=== PATIENT | female | born 1945 | race Asian ===

== ENCOUNTER 2021-12-09 05:41 | Inpatient (IN) | payer BC ==
[~2021-12-09] VITALS: Ht 162.6 cm; Wt 50.1 kg
--- NOTE | 2021-12-09 05:41 | NUR ---
C/O GEN WEAKNESS SINCE 4PM YESTERDAY; NO APPETITE. PT A/OX4. TOLERATING R/A WELL WITH NO SOB. CONNECTED PT TO POX AND MONITOR
--- NOTE | 2021-12-09 06:20 | NUR ---
RAC #20G S/L; PATENT AND INTACT. BLOOD AND COVID ANTIGEN SWAB COLLECTED AND SENT TO LAB
--- NOTE | 2021-12-09 06:36 | NUR ---
SOLE LEVELER AT PT'S BEDSIDE
[2021-12-09 06:38] LABS: BASOPHILS % (AUTO) 0.4 % (0.0-2.0); EOSINOPHILS % (AUTO) 0.1 % (0.0-6.0); HEMATOCRIT 38 % (33-45); HEMOGLOBIN 12.9 g/dL (11.5-14.8); LYMPHOCYTES % (AUTO) 12.3 % (20.0-44.0); MEAN CORPUSCULAR HGB CONC 34 g/dl (31.0-36.0); MEAN CORPUSCULAR VOLUME 90 fL (82-100); MONOCYTES # (AUTO) 0.7 K/uL (0.1-1.30); MONOCYTES % (AUTO) 8.7 % (2.0-12.0); NEUTROPHILS # (AUTO) 6.5 K/uL (1.8-8.9); NEUTROPHILS % (AUTO) 78.5 % (43.0-81.0); PLATELET COUNT (AUTO) 189 K/uL (150-450); RED BLOOD CELL COUNT(AUTO) 4.24 MIL/uL (4.0-5.2); WHITE BLOOD COUNT (AUTO) 8.2 K/uL (4.3-11.0)
[2021-12-09 06:47] LABS: CALCIUM, SERUM 8.8 mg/dL (8.5-10.1); CARBON DIOXIDE 26 mmol/L (21-32); CHLORIDE 94 mmol/L (98-107); CREATININE 0.7 mg/dL (0.6-1.3); GLUCOSE 174 mg/dL (74-106); POTASSIUM 3.8 mmol/L (3.5-5.1); SODIUM SERUM 126 mmol/L (136-145); UREA NITROGEN, BLOOD 7 mg/dL (7-18)
[2021-12-09] MEDS ORDERED: ALBUTEROL FS 2.5 MG/3 ML VIAL.NEB CONTNEB ONE (07:00)
--- NOTE | 2021-12-09 07:05 | NUR ---
RT CALLED FOR TX
[2021-12-09] MEDS ORDERED: ALBUTEROL FS 2.5 MG/3 ML VIAL.NEB ONE (07:17)
[2021-12-09 07:24] LABS: ALBUMIN 3.1 g/dL (3.4-5.0); BILIRUBIN,DIRECT 0.1 mg/dL (0.0-0.2); BILIRUBIN,TOTAL 0.8 mg/dL (0.2-1.0); TOTAL PROTEIN, SERUM 7.9 g/dL (6.4-8.2)
[2021-12-09] MEDS ORDERED: IV NS 0.9% 1,000 ML IV ONE (07:30)
[2021-12-09] MEDS ORDERED: methylPREDNISolone SOD SUCC 125 MG/2ML VIAL ONE (08:00)
[2021-12-09] MEDS ORDERED: IPRATROPIUM NEB FS 0.5 MG/2.5 ML AMPUL.NEB NEB ONE (08:00)
[2021-12-09] MEDS ORDERED: methylPREDNISolone SOD SUCC 125 MG/2ML VIAL IV ONE (08:00)
--- NOTE | 2021-12-09 08:00 | NUR ---
called RT for Tx
[2021-12-09] MEDS ORDERED: IPRATROPIUM NEB FS 0.5 MG/2.5 ML AMPUL.NEB ONE (08:05)
--- NOTE | 2021-12-09 08:05 | NUR ---
RT at bedside for Tx.
[2021-12-09] MEDS ORDERED: METF-440 PO (08:22)
[2021-12-09] MEDS ORDERED: PREG-57 PO (08:22)
[2021-12-09] MEDS ORDERED: TRAM50TA2 PO (08:22)
[2021-12-09 08:29] LABS: BILIRUBIN,URINE NEGATIVE (NEGATIVE); COLOR,URINE YELLOW (YELLOW); LEUKOCYTE ESTERASE ,URINE NEGATIVE (NEGATIVE); NITRITE, URINE NEGATIVE (NEGATIVE); PROTEIN,URINE NEGATIVE (NEGATIVE); UGLUCOSE NEGATIVE (NEGATIVE); UROBILINOGEN,URINE 0.2 EU/dL (0.2)
[2021-12-09 08:35] LABS: WBC,URINE 0-2 /HPF (0-3)
[2021-12-09 08:36] LABS: BACTERIA,URINE None seen /HPF (None Seen); RBC,URINE 0-2 /HPF (0-2); SQUAMOUS EPITHELIAL CELL,UR 0-2 /HPF (None Seen)
--- NOTE | 2021-12-09 09:39 | NUR ---
[facility] CALLED COMPOSITION TEACHER PAGED, DR. SKINNER.
--- NOTE | 2021-12-09 12:02 | NUR ---
PT PROVIDED WITH MEAL TRAY
--- NOTE | 2021-12-09 12:34 | NUR ---
PT RESTING COMFORTABLY IN BED, VITAL SIGNS ARE STABLE.
--- NOTE | 2021-12-09 14:01 | NUR ---
PT ABLE TO AMBULATE IN BED WIHTOUT ASSISTANCE TO THE RESTROOM
[2021-12-09] MEDS ORDERED: ONDANSETRON HCL/PF 4 MG/2 ML VIAL IVP PRN (15:30)
[2021-12-09] MEDS ORDERED: MAG HYDROX/AL HYDROX/SIMETH 30 ML UDC PO PRN (15:30)
--- NOTE | 2021-12-09 16:01 | NUR ---
PT PROVIDED WITH FOOD TRAY
[2021-12-09] MEDS ORDERED: LEVOFLOXACIN 500 MG /D5W 100ML 100 ML IV ONE (16:16)
[2021-12-09] MEDS ORDERED: ENOXAPARIN SODIUM 40 MG/0.4 ML DISP.SYRIN SQ ONE (16:17)
[2021-12-09] MEDS: ENOXAPARIN SODIUM 40 MG/0.4 ML DISP.SYRIN SQ SCH (16:20)
[2021-12-09] MEDS: LEVOFLOXACIN 500 MG /D5W 100ML 500 MG in PREMIX 1 EA IV SCH (16:22)
[2021-12-09] MEDS: IV NS 0.9% 1,000 ML IV PRN (16:22)
[2021-12-09] MEDS ORDERED: Z GUARD REMEDY 4 OZ OINT TP PRN (17:00)
--- NOTE | 2021-12-09 18:52 | NUR ---
GOT BED 328-1 AFTER CHANGE OF SHIFT.
--- NOTE | 2021-12-09 19:53 | NUR ---
REPORT GIVEN TO FLAVIA RUANO FOR ELIZABETH
[2021-12-09 20:10] VITALS: BP 112/73
--- NOTE | 2021-12-09 20:17 | NUR ---
PATIENT TRANSFERRED UNDER ACLS.
[2021-12-09 20:20] VITALS: BP 112/73
[2021-12-09] MEDS: ZOLPIDEM TARTRATE 5 MG TABLET PO PRN (21:07)
[2021-12-09] MEDS: ACETAMINOPHEN 325 MG TABLET PO PRN (21:07)
[2021-12-09] MEDS: methylPREDNISolone SOD SUCC 125 MG/2ML VIAL IV SCH (21:07)
[2021-12-09] MEDS ORDERED: MAGNESIUM HYDROXIDE 30 ML UDC PO PRN (22:00)
--- NOTE | 2021-12-09 22:47 | NUR ---
RN ADMITTING NOTES Patient is A&Ox4. Initial VS B/P 112/73, HR 89, RR 20, temp 97.7, O2 sat 100% on 2L NC. is ambulatory with 1 person assist d/t weakness. Reports feeling weak, cold, productive cough with yellow phlegm, sinus congestion/nasal drip. Pupils equal and reactive to light extremities move evenly, heart rate and rhythm regular, wheezes heard throughout upon auscultation of lungs, bowel sounds hypoactive patient reported not eating anything today, abdomen is soft, non-tender, non-distended, no edema, skin intact. Tele monitor applied promptly -NSR. RAC #18G intact and patent -NS running at 75ml/hr. Oriented patient to unit protocols, room, bed controls, call light. Safety measures in place. Bed alarm on. Will continue to monitor.
[2021-12-10] VITALS (8 sets, daily range): BP systolic 118–156; BP diastolic 60–77
--- NOTE | 2021-12-10 01:33 | NUR ---
Patient says okay to give daughter updates Shara Gutiérrez [phone]
[2021-12-10] MEDS: methylPREDNISolone SOD SUCC 125 MG/2ML VIAL IV SCH ×3 (04:33→21:36)
[2021-12-10] MEDS: IPRATROPIUM NEB FS 0.5 MG/2.5 ML AMPUL.NEB NEB PRN ×2 (04:38→12:10)
[2021-12-10] MEDS: IV NS 0.9% 1,000 ML IV PRN (04:38)
[2021-12-10] MEDS: ALBUTEROL FS 2.5 MG/0.5 ML VIAL.NEB NEB PRN ×2 (04:38→12:10)
--- NOTE | 2021-12-10 04:43 | NUR ---
Patient is wheezing episode of SOB. called RT for PRN breathing treatment.
--- NOTE | 2021-12-10 06:13 | NUR ---
RN CLOSING NOTES Patient is currently awake in bed A&Ox4. No SOB at this time. Had 1 SOB episode overnight that was relieved with PRN breathing treatment. Able to ambulate to bathroom with assist at beginning of the night but later says she feels too weak and gets SOB upon exertion easily so pt. refused orthostatic vitals this AM. Will endorse if she is feeling better later. on tele monitor- SR overnight 85-95 mostly but when coughing can go up to 110. RAC #18G intact and patent running NS at 75ml/hr.
[2021-12-10 06:48] LABS: BASOPHILS % (AUTO) 0.1 % (0.0-2.0); HEMATOCRIT 38 % (33-45); HEMOGLOBIN 12.7 g/dL (11.5-14.8); LYMPHOCYTES % (AUTO) 12.6 % (20.0-44.0); MEAN CORPUSCULAR HGB CONC 33 g/dl (31.0-36.0); MEAN CORPUSCULAR VOLUME 90 fL (82-100); MONOCYTES # (AUTO) 0.4 K/uL (0.1-1.30); MONOCYTES % (AUTO) 5.3 % (2.0-12.0); NEUTROPHILS # (AUTO) 6.5 K/uL (1.8-8.9); PLATELET COUNT (AUTO) 193 K/uL (150-450); RED BLOOD CELL COUNT(AUTO) 4.27 MIL/uL (4.0-5.2); WHITE BLOOD COUNT (AUTO) 7.9 K/uL (4.3-11.0)
--- NOTE | 2021-12-10 07:25 | NUR ---
ms rn received on bed, awake,alert,oriented x4,new admission from overnight cashier,came w/ sod asthma exacerbation, w/ adequate sturation and no sob noted, denies pain at this time, will monitor patient.
[2021-12-10 07:26] LABS: CALCIUM, SERUM 8.8 mg/dL (8.5-10.1); CREATININE 0.6 mg/dL (0.6-1.3); MAGNESIUM 2.3 mg/dL (1.8-2.4); PHOSPHORUS 2.6 mg/dL (2.5-4.9); POTASSIUM 4.2 mmol/L (3.5-5.1)
[2021-12-10 07:45] LABS: THYROID STIMULATING HORMONE 0.238 uIU/mL (0.358-3.74)
--- NOTE | 2021-12-10 08:20 | NUR ---
ms hanson breakfast served,due meds given,tolerated well.
[2021-12-10 09:51] LABS: THYROID STIMULATING HORMONE 0.247 uIU/mL (0.358-3.74)
--- NOTE | 2021-12-10 10:00 | NUR ---
ms rn was seen by dr. adore villalba/ orders made and carried out.
[2021-12-10] MEDS: LOSARTAN POTASSIUM 50 MG TABLET PO SCH (10:06)
[2021-12-10] MEDS: PANTOPRAZOLE 40 MG TABLET.DR PO SCH (10:06)
[2021-12-10] MEDS: ACETAMINOPHEN 325 MG TABLET PO PRN (10:30)
[2021-12-10] MEDS ORDERED: ZOLPIDEM TARTRATE 5 MG TABLET PO PRN (11:30)
--- NOTE | 2021-12-10 12:30 | NUR ---
ms rn patient has sob, panic attack/ crying. all needs attended.
[2021-12-10] MEDS: BENZONATATE 100 MG CAPSULE PO PRN ×3 (12:37→22:30)
--- NOTE | 2021-12-10 12:45 | NUR ---
ms rn called dr. machuca wants to transfer pt in icu.
[2021-12-10 12:47] LABS: ABG BASE EXCESS -3.3 mmol/L; ABG OXYGEN SATURATION 98.2 % (92.0-98.5); ABG PCO2 42.5 mmHg (35.0-45.0); ABG PO2 109.5 mmHg (75.0-100.0); AaDO2 68.9 mmHg; COHb 0.6 % (0.5-1.5); MetHb 0.2 % (0.0-1.5); O2Hb 97.4 % (94.0-97.0); SITE, ABG Right Radial; VENT MODE, BG Nasal Cannula
[2021-12-10] MEDS ORDERED: ALPRAZOLAM 0.25 MG TABLET PO ONE (13:30)
[2021-12-10] MEDS: LEVOFLOXACIN 500 MG /D5W 100ML 500 MG in PREMIX 1 EA IV SCH (16:42)
[2021-12-10] MEDS: ENOXAPARIN SODIUM 40 MG/0.4 ML DISP.SYRIN SQ SCH (17:18)
--- NOTE | 2021-12-10 18:00 | NUR ---
ms rn on bed,no distress noted all needs attended.
--- NOTE | 2021-12-10 20:00 | NUR ---
CONSTRUCTION IRONWORKER OPENING NOTES: RECEIVED PATIENT AWAKE IN BED, BED IN LOW POSITION CALL LIGHTS WITHIN REACH, NO COMPLAIN OF PAIN AND DISCOMFORT AT THIS TIME, PATIENT IS A/OX4 ABLE TO MAKE NEED KNOWN, ON TELE MONITORING SR-82, ON O2 INHALATION AT 3LPM SATURATING WELL, PATIENT HOB AT 45 DEGREE ON MONITORING FOR DESATURATION DUE TO COUGHING, WITH IV LINE AT RAC#18 SL PATIENT KEPT CLEAN AND DRY ALL NEEDS MET WILL CONTINUE TO MONITOR.
[2021-12-10] MEDS: GUAIFENESIN/D-METHORPHAN HB 5 ML UDC PO PRN (20:18)
[2021-12-11] VITALS: BP 118/64
[2021-12-11] MEDS: ZOLPIDEM TARTRATE 5 MG TABLET PO PRN ×2 (00:11→21:24)
[2021-12-11 04:00] VITALS: BP 124/69
[2021-12-11] MEDS: methylPREDNISolone SOD SUCC 125 MG/2ML VIAL IV SCH ×3 (05:16→21:20)
--- NOTE | 2021-12-11 06:08 | NUR ---
ESTIMATING MANAGER CLOSING NOTES: PATIENT SLEEP IN BED COMFORTABLY, HOB AT 45 DEGREE AT 3LPM VIA NASAL CANNULA SATURATING WELL, PATIENT IS A/OX4 AMBULATORY TO BEDSIDE COMMODE WITH ASSISTANCE, ON TELE MONITORING SR-84, ON MONITORING FOR DESATURATION DUE TO COUGHING, IV LINE AT [facility], PATIENT KEPT CLEAN AND DRY ALL NEEDS MET ENDORSE TO INCOMING SHIFT.
[2021-12-11 06:38] LABS: BASOPHILS % (AUTO) 0.1 % (0.0-2.0); HEMATOCRIT 39 % (33-45); HEMOGLOBIN 12.7 g/dL (11.5-14.8); LYMPHOCYTES # (AUTO) 1.5 K/uL (0.8-4.8); LYMPHOCYTES % (AUTO) 12.1 % (20.0-44.0); MEAN CORPUSCULAR HGB CONC 33 g/dl (31.0-36.0); MEAN CORPUSCULAR VOLUME 90 fL (82-100); MONOCYTES # (AUTO) 0.8 K/uL (0.1-1.30); MONOCYTES % (AUTO) 6.3 % (2.0-12.0); NEUTROPHILS # (AUTO) 10.3 K/uL (1.8-8.9); NEUTROPHILS % (AUTO) 81.5 % (43.0-81.0); PLATELET COUNT (AUTO) 223 K/uL (150-450); WHITE BLOOD COUNT (AUTO) 12.6 K/uL (4.3-11.0)
[2021-12-11 07:11] LABS: CALCIUM, SERUM 9.2 mg/dL (8.5-10.1); CARBON DIOXIDE 29 mmol/L (21-32); CHLORIDE 103 mmol/L (98-107); CREATININE 0.7 mg/dL (0.6-1.3); GLUCOSE 191 mg/dL (74-106); MAGNESIUM 2.3 mg/dL (1.8-2.4); PHOSPHORUS 3.4 mg/dL (2.5-4.9); POTASSIUM 4.1 mmol/L (3.5-5.1); SODIUM SERUM 140 mmol/L (136-145); UREA NITROGEN, BLOOD 16 mg/dL (7-18)
[2021-12-11 08:00] VITALS: BP 119/68
[2021-12-11] MEDS: ALBUTEROL FS 2.5 MG/0.5 ML VIAL.NEB NEB PRN (08:59)
[2021-12-11] MEDS: IPRATROPIUM NEB FS 0.5 MG/2.5 ML AMPUL.NEB NEB PRN (08:59)
[2021-12-11] MEDS: LOSARTAN POTASSIUM 50 MG TABLET PO SCH (09:00)
[2021-12-11] MEDS: PANTOPRAZOLE 40 MG TABLET.DR PO SCH (09:19)
--- NOTE | 2021-12-11 10:00 | NUR ---
received pt. in am,vs stable.alert and oriented x4.roll tension tester light freq.states sob-pox checked and called for breathing tx.pox 100%.
[2021-12-11] MEDS: ALBUTEROL FS 2.5 MG/0.5 ML VIAL.NEB NEB SCH ×5 (11:34→23:36)
[2021-12-11] MEDS: IPRATROPIUM NEB FS 0.5 MG/2.5 ML AMPUL.NEB NEB SCH ×5 (11:35→23:37)
--- NOTE | 2021-12-11 11:35 | NUR ---
family here.dr. machuca texted to call son-in -law,and assured dr. avitia to be in to see pt.
[2021-12-11] MEDS: GUAIFENESIN/D-METHORPHAN HB 5 ML UDC PO PRN (15:30)
[2021-12-11] MEDS: LEVOFLOXACIN 500 MG /D5W 100ML 500 MG in PREMIX 1 EA IV SCH (15:48)
[2021-12-11] MEDS: ENOXAPARIN SODIUM 40 MG/0.4 ML DISP.SYRIN SQ SCH (15:59)
[2021-12-11] MEDS: BENZONATATE 100 MG CAPSULE PO PRN ×2 (15:59→21:23)
[2021-12-11 16:00] VITALS: BP 121/53
--- NOTE | 2021-12-11 16:10 | NUR ---
robitussin and tessalon perle given for cough.
--- NOTE | 2021-12-11 19:30 | NUR ---
MS RN OPENING NOTES RECEIVED PATIENT LYING IN BED AWAKE, HOB ELEVATED. A/O X3. VERBALIZED SHE CAN'T EAT HER DINNER SINCE THE MEAT IS TOO HARD, PREFERS SALAD AND FISH. OFFERED SANDWICH. NOT IN APPARENT DISTRESS. ON O2 AT 3 LPM VIA NASAL CANULA. NO SOB OR NOTED. HAS RIGHT FOREARM IV ACCESS #18G, LEAKING NOTED. SAFETY PRECAUTIONS IN PLACE. WILL CONTINUE PLAN OF CARE.
--- NOTE | 2021-12-11 21:30 | NUR ---
MS RN NOTES PATIENT REQUESTED FOR HER COUGH MEDICINE AND SLEEPING PILL. COUGHING AND TROUBLE SLEEPING NOTED.
[2021-12-12] MEDS: IPRATROPIUM NEB FS 0.5 MG/2.5 ML AMPUL.NEB NEB SCH ×6 (03:31→23:38)
[2021-12-12] MEDS: ALBUTEROL FS 2.5 MG/0.5 ML VIAL.NEB NEB SCH ×6 (03:31→23:38)
[2021-12-12] MEDS: BENZONATATE 100 MG CAPSULE PO PRN ×3 (04:52→16:14)
[2021-12-12] MEDS: methylPREDNISolone SOD SUCC 125 MG/2ML VIAL IV SCH ×3 (05:08→20:21)
--- NOTE | 2021-12-12 07:08 | NUR ---
MS RN CLOSING NOTES PATIENT LYING IN BED SLEEPING INTERMITTENTLY. A/O X3. NO C/O PAIN AT THIS TIME. BREATHING EVEN AND UNLABORED. VERBALIZED HER ASTHMA IS A LOT BETTER NOW. ON O2 AT 3 LPM VIA NASAL CANULA. RE-INSERTED IV ACCESS IN LEFT HAND #22G. INTACT, PATENT AND FLUSHING. ALL NEEDS ATTENDED. KEPT DRY AND COMFORTABLE. LEFT LABIA MAJORA LACERATION NOTED. PATIENT VERBALIZED THAT HER PERINEAL AREA WAS DRY AND IT WAS LACERATED WHILE SHE WAS TRYING TO MOVE OUT OF BED. PERICARE RENDERED. SAFETY PRECAUTIONS IN PLACE: BED LOW AND LOCKED, SIDE RAILS UP X2, CALL LIGHT WITHIN REACH.
[2021-12-12 07:12] LABS: BASOPHILS % (AUTO) 0.1 % (0.0-2.0); HEMATOCRIT 37 % (33-45); HEMOGLOBIN 12.3 g/dL (11.5-14.8); LYMPHOCYTES # (AUTO) 1.5 K/uL (0.8-4.8); LYMPHOCYTES % (AUTO) 15.4 % (20.0-44.0); MEAN CORPUSCULAR HGB CONC 33 g/dl (31.0-36.0); MEAN CORPUSCULAR VOLUME 89 fL (82-100); MONOCYTES # (AUTO) 0.9 K/uL (0.1-1.30); MONOCYTES % (AUTO) 9.9 % (2.0-12.0); NEUTROPHILS # (AUTO) 7.2 K/uL (1.8-8.9); NEUTROPHILS % (AUTO) 74.6 % (43.0-81.0); PLATELET COUNT (AUTO) 223 K/uL (150-450); RED BLOOD CELL COUNT(AUTO) 4.19 MIL/uL (4.0-5.2); WHITE BLOOD COUNT (AUTO) 9.6 K/uL (4.3-11.0)
--- NOTE | 2021-12-12 07:26 | NUR ---
RN NOTES RESTING IN BED, AWAKE AND VERBALLY RESPONSIVE. [place] ON RIGHT EAR. VERBALLY RESPONSIVE AND ABLE TO MAKE NEEDS KNOWN. NO COMPLAINT OF PAIN AT THIS TIME. SAFETY MEASURES IN PLACE. WILL CONTINUE TO MONITOR.
[2021-12-12 07:46] LABS: CALCIUM, SERUM 8.9 mg/dL (8.5-10.1); CARBON DIOXIDE 29 mmol/L (21-32); CHLORIDE 98 mmol/L (98-107); CREATININE 0.8 mg/dL (0.6-1.3); GLUCOSE 200 mg/dL (74-106); MAGNESIUM 2.4 mg/dL (1.8-2.4); PHOSPHORUS 3.1 mg/dL (2.5-4.9); POTASSIUM 3.7 mmol/L (3.5-5.1); SODIUM SERUM 136 mmol/L (136-145); UREA NITROGEN, BLOOD 15 mg/dL (7-18)
[2021-12-12] MEDS: PANTOPRAZOLE 40 MG TABLET.DR PO SCH (08:25)
[2021-12-12] MEDS: LOSARTAN POTASSIUM 50 MG TABLET PO SCH (08:25)
[2021-12-12] MEDS: ACETYLCYSTEINE 20% SOLN 800 MG/4 ML VIAL NEB SCH ×2 (14:51→23:38)
[2021-12-12] MEDS: LEVOFLOXACIN 500 MG /D5W 100ML 500 MG in PREMIX 1 EA IV SCH (16:15)
[2021-12-12] MEDS: ENOXAPARIN SODIUM 40 MG/0.4 ML DISP.SYRIN SQ SCH (16:15)
--- NOTE | 2021-12-12 19:45 | NUR ---
MS RN OPENING NOTE RECEIVED PT AWAKE IN BED. A/O X3, ABLE TO MAKE NEEDS KNOWN. PT ON O2 @ 3 LPM VIA NC, O2 SAT 98%. NO SOB OR S/S OF RESPIRATORY DISTRESS AT THIS TIME. BREATHING EVEN AND UNLABORED. IV ACCESS L HAND 20 GAUGE, INTACT AND PATENT. SAFETY PRECAUTIONS IN PLACE. BED IN LOWEST LOCKED POSITION, HOB ELEVATED, SIDE RAILS UP X2, AND CALL LIGHT AND TABLE WITHIN REACH. ALL NEEDS MET AT THIS TIME.
[2021-12-12 20:00] VITALS: BP 135/68
[2021-12-12] MEDS: ZOLPIDEM TARTRATE 5 MG TABLET PO PRN (20:53)
--- NOTE | 2021-12-12 20:53 | NUR ---
RN NOTE PT REQUESTED SLEEPING PILL TO SLEEP, COMPLAINTS OF INSOMNIA NOTED. ADMINISTERED ZOLPIDEM 5 MG FOR INSOMNIA ORDERED. PROVIDED WARM BLANKETS AND POSITIONED FOR COMFORT. ALL NEEDS MET AT THIS TIME.
[2021-12-13] MEDS: IPRATROPIUM NEB FS 0.5 MG/2.5 ML AMPUL.NEB NEB SCH ×6 (03:50→23:38)
[2021-12-13] MEDS: ALBUTEROL FS 2.5 MG/0.5 ML VIAL.NEB NEB SCH ×6 (03:50→23:38)
[2021-12-13] MEDS: methylPREDNISolone SOD SUCC 125 MG/2ML VIAL IV SCH ×2 (04:13→16:04)
--- NOTE | 2021-12-13 06:40 | NUR ---
MS RN CLOSING NOTE PT AWAKE IN BED. A/O X3, ABLE TO MAKE NEEDS KNOWN. PT ON O2 @ 3 LPM VIA NC, O2 SAT 98%. NO SOB OR S/S OF RESPIRATORY DISTRESS AT THIS TIME. BREATHING EVEN AND UNLABORED. IV ACCESS L HAND 20 GAUGE, INTACT AND PATENT. SAFETY PRECAUTIONS IN PLACE AT ALL TIMES. BED IN LOWEST LOCKED POSITION, HOB ELEVATED, SIDE RAILS UP X2, AND CALL LIGHT AND TABLE WITHIN REACH. ALL NEEDS MET AT THIS TIME AND WILL ENDORSE TO ONCOMING NURSE FOR ELIZABETH.
[2021-12-13 07:21] LABS: HEMATOCRIT 37 % (33-45); HEMOGLOBIN 12.3 g/dL (11.5-14.8); LYMPHOCYTES # (AUTO) 1.3 K/uL (0.8-4.8); LYMPHOCYTES % (AUTO) 17.8 % (20.0-44.0); MEAN CORPUSCULAR HGB CONC 33 g/dl (31.0-36.0); MEAN CORPUSCULAR VOLUME 89 fL (82-100); MONOCYTES # (AUTO) 0.6 K/uL (0.1-1.30); NEUTROPHILS # (AUTO) 5.1 K/uL (1.8-8.9); NEUTROPHILS % (AUTO) 73.2 % (43.0-81.0); PLATELET COUNT (AUTO) 220 K/uL (150-450); RED BLOOD CELL COUNT(AUTO) 4.19 MIL/uL (4.0-5.2)
--- NOTE | 2021-12-13 07:25 | NUR ---
RN OPENING NOTES RECEIVED PATIENT RESTING IN BED, EASILY AROUSED, A/O X4. VERBALLY RESPONSIVE. NO SIGNS OF ACUTE DISTRESS NOTED. ON O2 @ 3LPM VIA N/C, NO SOB NOTED, BREATHING EVEN AND UNLABORED. NOTED WITH IV ACCESS ON LEFT HAND #20G, INTACT AND PATENT, SALINE LOCKED. SAFETY MEASURE IN PLACE. BED IN LOWEST AND LOCKED POSITION, SR UP, CALL LIGHT PLACED WITHIN EASY REACH, WILL CONTINUE TO MONITOR PATIENT.
[2021-12-13 07:45] LABS: CREATININE 0.8 mg/dL (0.6-1.3); MAGNESIUM 2.4 mg/dL (1.8-2.4); PHOSPHORUS 3.7 mg/dL (2.5-4.9); POTASSIUM 3.9 mmol/L (3.5-5.1)
[2021-12-13 07:57] LABS: CALCIUM, SERUM 8.6 mg/dL (8.5-10.1)
[2021-12-13] MEDS: ACETYLCYSTEINE 20% SOLN 800 MG/4 ML VIAL NEB SCH ×3 (07:59→23:38)
[2021-12-13 08:00] VITALS: BP 126/72
[2021-12-13] MEDS: PANTOPRAZOLE 40 MG TABLET.DR PO SCH (08:11)
[2021-12-13] MEDS: LOSARTAN POTASSIUM 50 MG TABLET PO SCH (08:12)
[2021-12-13] MEDS ORDERED: methylPREDNISolone SOD SUCC 125 MG/2ML VIAL IV SCH (10:00)
[2021-12-13] MEDS: BENZONATATE 100 MG CAPSULE PO PRN ×2 (12:23→18:18)
[2021-12-13 16:00] VITALS: BP 113/61
[2021-12-13] MEDS: LEVOFLOXACIN (250MG) 250 MG TABLET PO SCH (16:04)
[2021-12-13] MEDS: ENOXAPARIN SODIUM 40 MG/0.4 ML DISP.SYRIN SQ SCH (16:05)
--- NOTE | 2021-12-13 18:46 | NUR ---
RN CLOSING NOTES PATIENT IN BED, AWAKE, A/O X4. VERBALLY RESPONSIVE. NO SIGNS OF ACUTE DISTRESS NOTED. REMAINS ON O2 @ 3LPM VIA N/C, NO SOB NOTED, BREATHING EVEN AND UNLABORED. STILL NOTED WITH COUGH. TESSALON PEARLS GIVEN NEEDED. IV ACCESS ON LEFT HAND #20G, INTACT AND PATENT, SALINE LOCKED. ALL DUE MEDS GIVEN, TOLERATED WELL. SAFETY MEASURE MAINTAINED. BED IN LOWEST AND LOCKED POSITION, SR UP, CALL LIGHT PLACED WITHIN EASY REACH, WILL ENDORSE TO NEXT SHIFT FOR CONTINUITY OF CARE.
--- NOTE | 2021-12-13 18:55 | NUR ---
RN NOTES PATIENT C/O MOUTH SORE, DR. SKINNER MADE AWARE WITH NEW ORDER, CARRIED OUT.
[2021-12-13] MEDS ORDERED: PHENOL/SODIUM PHENOLATE 1 BOTTLE MM PRN (19:00)
--- NOTE | 2021-12-13 19:32 | NUR ---
MS RN OPENING NOTE RECEIVED PT AWAKE IN BED. A/O X3, ABLE TO MAKE NEEDS KNOWN. PT ON O2 @ 3 LPM VIA NC, O2 SAT 97%. NO SOB OR S/S OF RESPIRATORY DISTRESS AT THIS TIME. BREATHING EVEN AND UNLABORED. IV ACCESS L HAND 20 GAUGE, INTACT AND PATENT. SAFETY PRECAUTIONS IN PLACE. BED IN LOWEST LOCKED POSITION, HOB ELEVATED, SIDE RAILS UP X2, AND CALL LIGHT AND TABLE WITHIN REACH. ALL NEEDS MET AT THIS TIME.
[2021-12-13 20:00] VITALS: BP 118/54
[2021-12-13 20:06] VITALS: BP 118/54
[2021-12-13] MEDS: ZOLPIDEM TARTRATE 5 MG TABLET PO PRN (20:46)
--- NOTE | 2021-12-13 20:46 | NUR ---
RN NOTE PT REQUESTED SLEEPING PILL TO SLEEP, COMPLAINTS OF INSOMNIA NOTED. ADMINISTERED ZOLPIDEM 5 MG FOR INSOMNIA ORDERED. POSITIONED FOR COMFORT. ALL NEEDS MET AT THIS TIME.
[2021-12-14] MEDS: IPRATROPIUM NEB FS 0.5 MG/2.5 ML AMPUL.NEB NEB SCH ×5 (03:30→19:55)
[2021-12-14] MEDS: ALBUTEROL FS 2.5 MG/0.5 ML VIAL.NEB NEB SCH ×5 (03:30→19:55)
[2021-12-14] MEDS: methylPREDNISolone SOD SUCC 125 MG/2ML VIAL IV SCH ×2 (04:04→16:29)
--- NOTE | 2021-12-14 06:47 | NUR ---
MS RN CLOSING NOTE PT AWAKE IN BED. A/O X4, ABLE TO MAKE NEEDS KNOWN. PT ON O2 @ 2 LPM VIA NC, O2 SAT 98%. NO SOB OR S/S OF RESPIRATORY DISTRESS AT THIS TIME. BREATHING EVEN AND UNLABORED. IV ACCESS L HAND 20 GAUGE, INTACT AND PATENT. SAFETY PRECAUTIONS IN PLACE AT ALL TIMES. BED IN LOWEST LOCKED POSITION, HOB ELEVATED, SIDE RAILS UP X2, AND CALL LIGHT AND TABLE WITHIN REACH. ALL NEEDS MET AT THIS TIME AND WILL ENDORSE TO ONCOMING NURSE FOR ELIZABETH.
[2021-12-14 07:10] LABS: BASOPHILS % (AUTO) 0.1 % (0.0-2.0); HEMATOCRIT 40 % (33-45); HEMOGLOBIN 13.3 g/dL (11.5-14.8); LYMPHOCYTES # (AUTO) 1.4 K/uL (0.8-4.8); LYMPHOCYTES % (AUTO) 18.4 % (20.0-44.0); MEAN CORPUSCULAR HGB CONC 33 g/dl (31.0-36.0); MEAN CORPUSCULAR VOLUME 89 fL (82-100); MONOCYTES # (AUTO) 0.5 K/uL (0.1-1.30); MONOCYTES % (AUTO) 7.2 % (2.0-12.0); NEUTROPHILS # (AUTO) 5.5 K/uL (1.8-8.9); NEUTROPHILS % (AUTO) 74.3 % (43.0-81.0); PLATELET COUNT (AUTO) 253 K/uL (150-450); WHITE BLOOD COUNT (AUTO) 7.5 K/uL (4.3-11.0)
[2021-12-14 07:20] LABS: CALCIUM, SERUM 8.9 mg/dL (8.5-10.1); CREATININE 0.8 mg/dL (0.6-1.3); MAGNESIUM 2.5 mg/dL (1.8-2.4); PHOSPHORUS 3.5 mg/dL (2.5-4.9)
--- NOTE | 2021-12-14 07:32 | NUR ---
ms rn received on bed, awake,alert,oriented x4,not in any form of distress,respirations even and unlabored,no sob noted, on o2 2 liters w/ adequate saturation noted, denies pain at this time,all needs attended.
[2021-12-14 08:00] VITALS: BP 131/77
[2021-12-14] MEDS: ACETYLCYSTEINE 20% SOLN 800 MG/4 ML VIAL NEB SCH (08:24)
[2021-12-14] MEDS: LOSARTAN POTASSIUM 50 MG TABLET PO SCH (08:34)
[2021-12-14] MEDS: PANTOPRAZOLE 40 MG TABLET.DR PO SCH (08:37)
[2021-12-14] MEDS: BENZONATATE 100 MG CAPSULE PO PRN (08:37)
--- NOTE | 2021-12-14 08:40 | NUR ---
ms margie breakfast serve,due meds given,tolerated well.
[2021-12-14] MEDS ORDERED: LOSA50TA39 PO (10:24)
[2021-12-14] MEDS ORDERED: FLUT1DIS INH (10:24)
[2021-12-14] MEDS ORDERED: BENZ-38 PO (10:24)
[2021-12-14] MEDS ORDERED: METH4TAB3 PO (10:24)
--- NOTE | 2021-12-14 12:00 | NUR ---
ms rn was seen by paul villalba/ meir to go home today.
--- NOTE | 2021-12-14 15:00 | NUR ---
ms rn patient has nobody to pick her up,will do taxi voucher,
[2021-12-14 16:00] VITALS: BP 123/69
[2021-12-14] MEDS: LEVOFLOXACIN (250MG) 250 MG TABLET PO SCH (16:29)
[2021-12-14] MEDS: ENOXAPARIN SODIUM 40 MG/0.4 ML DISP.SYRIN SQ SCH (16:30)
--- NOTE | 2021-12-14 18:00 | NUR ---
ms rn due meds given, patient ready to go home, waiting for taxi, be here in one hour.all needs attended.
--- NOTE | 2021-12-14 19:20 | NUR ---
MS RN NOTES RECEIVED ENDORSEMENT FROM BINDU HERRING; PER RN, AWAITING TAXI TO THREADING MACHINE FEEDER AUTOMATIC PATIENT, TAXI ON THE WAY; APPROX 30 MINUTES - 1 HOUR ETA
--- NOTE | 2021-12-14 20:40 | NUR ---
MS RN NOTES CHARGE NURSE CALLED [employer] SERVICE, PER TAXI, APPROX 340 - 45 MORE MINUTES; PT INFORMED
--- NOTE | 2021-12-14 22:06 | NUR ---
MS RN NOTES PT REQUESTED TAXI TO BE CANCELLED, SON ABLE TO PICK HER UP; SON ARRIVED ON UNIT, PT IV REMOVED, IV TIP INTACT; PRESSURE APPLIED TO IV SITE; MONITORED OXYGENATION SON REPORTED PT IS HAVING HARD TIME BREATHING; CHARGE NURSE AND NURSING SOLAR PROJECT MANAGER AWARE; PATIENT ABLE TO TOLERATE ROOM AIR WELL, SATTING 94 - 98% ON ROOM AIR; PT DISCHARGED WITH ALL BELONGINGS, WHEELED DOWN TO CAR WITH SON BY LENS AND FRAMES PRESCRIPTION CLERK;
== END 2021-12-14 21:55 | disposition home or self-care (01) | DRG 641 ==
LOC: ER 06:03 → TRANSITION 10:52 → TELE 19:55 → ICU 12-10 12:28 → TELE 12-10 13:00 → MED 12-11 09:24
PROVIDERS: ADMIT Student in an Organized Health Care Education/Training Program; ATTEND Registered Nurse
DX: E86.0 Dehydration (principal); J45.901 Unspecified asthma with (acute) exacerbation; E44.1 Mild protein-calorie malnutrition; Z91.09 Other allergy status, other than to drugs and biological substances; E87.1 Hypo-osmolality and hyponatremia; E11.40 Type 2 diabetes mellitus with diabetic neuropathy, unspecified; E88.09 Other disorders of plasma-protein metabolism, not elsewhere classified; E11.42 Type 2 diabetes mellitus with diabetic polyneuropathy; Z20.822 Contact with and (suspected) exposure to COVID-19; Z91.018 Allergy to other foods; Z91.012 Allergy to eggs; Z79.84 Long term (current) use of oral hypoglycemic drugs; Z79.899 Other long term (current) drug therapy; J44.9 Chronic obstructive pulmonary disease, unspecified; F41.9 Anxiety disorder, unspecified; E86.1 Hypovolemia; Z91.14 Patient's other noncompliance with medication regimen; Z80.3 Family history of malignant neoplasm of breast
CPT/HCPCS: 36415; 36600; 70220-TC; 71045-TC; 80048-TC; 80076-TC; 81001; 82803-TC; 82962-TC; 83605-TC; 83690-TC; 83735-TC; 84100-TC; 84439-TC; 84443-TC; 84484-TC; 85025-TC; 85730-TC; 87040-TC; 87081-TC; 93307-TC; 93970-TC; 94799-TC; 97110-TC; 97112-TC; 97116-TC; 97530-TC; 97535-TC; A4216; A4217; A6403; C9803; G0378; J1650; J1956; J2930